=== PATIENT | female | born 1960 | race Caucasian/White ===

== ENCOUNTER → 2017-09-13 | Outpatient (CLI) | payer OTHER ==
[~2017-09-13] MED LIST: DUONEB 3 MG/3 ML3 M1 INH; GARLIC1000 M1 PO; GLYBURIDE5 MG PO; HYDRODIURIL25 MG PO; IRON325 M1 PO; METFORMIN500 MG PO; PREDNISONE20 M1 PO; PRINIVIL10 MG PO; VITAMIN B1250 MCG PO
== END | disposition home or self-care (01) ==
LOC: MAMMO 07:58
DX: Z12.31 Encounter for screening mammogram for malignant neoplasm of breast (principal); E55.9 Vitamin D deficiency, unspecified; E11.9 Type 2 diabetes mellitus without complications; D50.8 Other iron deficiency anemias; Z91.09 Other allergy status, other than to drugs and biological substances; I10 Essential (primary) hypertension

== ENCOUNTER 2018-01-28 20:34 | Emergency (ER) | payer OTHER ==
[~2018-01-28] VITALS: Ht 167.6 cm; Wt 134.3 kg
--- NOTE | ~2018-01-28 | EKG ---
[place], [place] ELECTROCARDIOGRAM REPORT NAME: DAVY SERRATO UNIT #: [id number] ROOM: DOCTOR: EPIPHANY DRAFT REPORT BIRTHDATE: [birth year] [facility] Test Date: 2018-01-28 Test Time: 21:16:04 Pat Name: DAVY SERRATO Department: ER Room: 8 Gender: F Insurance Sales Supervisor: DAYO : 1960 Requested By: SADIE NI Order Number: [id number] Reading MD: Amandeep Falcon MD Measurements Intervals [place] Rate: 68 P: 36 NE: 180 QRS: -30 QRSD: 111 T: 18 QT: 526 QTc: 560 Interpretive Statements Sinus rhythm Left axis deviation Borderline T abnormalities, anterior leads Prolonged QT interval Electronically Signed On 01-29-2018 9:42:51 PDT by Amandeep Falcon MD CM:EKGRPT:ELECTROCARDIOGRAM REPORT [id number] SADIE NI MD EPIPHANY DRAFT REPORT SADIE NI MD
[2018-01-28] MEDS ORDERED: MULTI COMPLETE1 EACH PO (20:48)
[2018-01-28 21:17] LABS: BASO % 0.5 % (0.0-1.0); EOS # 0.1 10*3/uL (0.0-0.4); EOS % 1.7 % (1.0-4.0); HEMATOCRIT 38.8 % (37.0-47.0); HEMOGLOBIN 12.5 g/dl (12.0-16.0); LYMPH # 1.6 10*3/uL (1.3-4.4); MEAN CELL VOLUME 84.2 fl (81.0-99.0); MEAN CORPUSCULAR HGB 27.1 pg (27.0-31.0); MEAN CORPUSCULAR HGB CONC 32.2 g/dl (33.0-37.0); MEAN PLATELET VOLUME 10.2 fl (9.6-12.3); MONO # 0.7 10*3/uL (0.1-1.0); MONO % 8.3 % (3.0-9.0); NEUT # 5.9 10*3/uL (2.3-7.9); NEUT % 70.3 % (47.0-73.0); PLATELET COUNT AUTOMATED 229 10*3/uL (130-400); RED BLOOD COUNT 4.61 10*6/uL (4.10-5.10); RED CELL DISTRI WIDTH 14.6 % (0-14.5); WHITE BLOOD COUNT 8.4 10*3/uL (4.8-10.8)
[2018-01-28 21:20] VITALS: BP 102/52
[2018-01-28 21:28] LABS: ACT PARTIAL THROMBO TIME 24.9 SECONDS (20.8-31.5); INTERNATIONAL NORM RATIO 0.9 (2.0-3.5)
[2018-01-28 21:33] LABS: ALBUMIN 3.6 gm/dl (3.1-4.5); ALKALINE PHOSPHATASE 76 U/L (45-117); BUN 16 mg/dl (7-24); CHLORIDE 104 mmol/L (98-107); CPK 54 U/L (26-192); CREATININE 0.71 mg/dL (0.55-1.02); POTASSIUM 3.9 mmol/L (3.5-5.1); SGOT/AST 11 IU/L (3-35); SGPT/ALT 20 U/L (12-78); SODIUM 138 mmol/L (136-145); TOTAL PROTEIN 7.1 gm/dL (6.4-8.2)
[2018-01-28 21:34] LABS: CKMB 0.7 ng/ml (0.5-3.6); TROPONIN I < 0.015 ng/ml (<0.045)
[2018-01-28] MEDS ORDERED: GOOD NEIGHBOR M25 M1 PO (22:36)
== END 2018-01-28 22:42 | disposition home or self-care (01) ==
LOC: ED 20:34
PROVIDERS: Emergency Medicine
DX: R42 Dizziness and giddiness (principal); Z79.899 Other long term (current) drug therapy

== ENCOUNTER → 2020-03-30 | Outpatient (CLI) | payer OTHER ==
[~2020-03-30] MED LIST changes: +GOOD NEIGHBOR M25 M1 PO; +MULTI COMPLETE1 EACH PO
== END | disposition home or self-care (01) ==
LOC: RAD 08:46
PROVIDERS: ATTEND Physician Assistant
DX: M47.816 Spondylosis without myelopathy or radiculopathy, lumbar region (principal); M16.12 Unilateral primary osteoarthritis, left hip; M85.88 Other specified disorders of bone density and structure, other site

== ENCOUNTER → 2020-07-19 | Outpatient (CLI) | payer OTHER | END | disposition home or self-care (01) | LOC: MRI 07:57 | PROVIDERS: ATTEND Physician Assistant | DX: M47.816 Spondylosis without myelopathy or radiculopathy, lumbar region (principal); M48.062 Spinal stenosis, lumbar region with neurogenic claudication; M51.26 Other intervertebral disc displacement, lumbar region; M54.41 Lumbago with sciatica, right side; M89.38 Hypertrophy of bone, other site ==

== ENCOUNTER → 2021-02-14 | Outpatient (CLI) | payer OTHER | END | disposition home or self-care (01) | LOC: MAMMO 00:28 | PROVIDERS: ATTEND Physician Assistant | DX: Z12.31 Encounter for screening mammogram for malignant neoplasm of breast (principal) ==

== ENCOUNTER → 2023-05-31 | Outpatient (CLI) | payer OTHER ==
[2023-05-31 12:29] LABS: HEMATOCRIT 36.7 % (37.0-47.0); MEAN CORPUSCULAR HGB 29.5 pg (27.0-31.0); MEAN CORPUSCULAR HGB CONC 33.5 g/dl (33.0-37.0); MEAN PLATELET VOLUME 10.2 fl (9.6-12.3); RED BLOOD COUNT 4.17 10*6/uL (4.10-5.10); RED CELL DISTRI WIDTH 13.8 % (0-14.5); WHITE BLOOD COUNT 6.6 10*3/uL (4.8-10.8)
[2023-05-31 13:03] LABS: ALKALINE PHOSPHATASE 68 U/L (46-116); BUN 15 mg/dl (9-23); CHLORIDE 105 mmol/L (98-107); CHOLESTEROL 118 mg/dL (<200); LDL CHOLESTEROL 49 mg/dL (9-159); POTASSIUM 4.5 mmol/L (3.4-5.1); SGPT/ALT 17 U/L (5-49); TOTAL PROTEIN 6.5 gm/dL (6.0-8.0); TRIGLYCERIDES 130 mg/dl (<150); VITAMIN D, 25-HYDROXY 59.9 ng/mL (30-100)
== END | disposition home or self-care (01) ==
LOC: LAB 12:10
PROVIDERS: ATTEND Physician Assistant
DX: E11.9 Type 2 diabetes mellitus without complications (principal); E55.9 Vitamin D deficiency, unspecified; M54.41 Lumbago with sciatica, right side

== ENCOUNTER 2023-11-03 22:33 | Emergency (ER) | payer OTHER ==
[~2023-11-03] VITALS: Ht 167.6 cm; Wt 137.0 kg
[2023-11-03 22:42] VITALS: BP 117/48
[2023-11-03] MEDS ORDERED: TRULICITY0.75 MG/0. SC (22:43)
[2023-11-03] MEDS ORDERED: Tdap Vaccine 0.5 ML SYR (Adult Vaccine) IM ONE (22:50)
[2023-11-03] MEDS ORDERED: Lidocaine Hydrochloride 2% 10 ML AMP SC ONE (22:50)
[2023-11-03] MEDS ORDERED: Bacitracin Zinc 14 GM TUBE T ONE (22:50)
[2023-11-03] MEDS ORDERED: Lidocaine Hydrochloride 100 MG/5 ML SYR IV ONE (23:02)
[2023-11-03] MEDS ORDERED: Lidocaine Hydrochloride 2 ML IV ONE (23:04)
[2023-11-03] MEDS ORDERED: Lidocaine Hydrochloride 5 ML AMP ONE (23:06)
[2023-11-03] MEDS ORDERED: CEPHALEXIN500 M1 PO (23:22)
== END 2023-11-03 23:48 | disposition home or self-care (01) ==
LOC: ED 22:33
DX: S61.411A Laceration without foreign body of right hand, initial encounter (principal); Z98.890 Other specified postprocedural states; W25.XXXA Contact with sharp glass, initial encounter; Y93.G1 Activity, food preparation and clean up; Y92.009 Unspecified place in unspecified non-institutional (private) residence as the place of occurrence of the external cause; Y99.8 Other external cause status

== ENCOUNTER 2023-12-16 00:39 | Emergency (ER) | payer OTHER ==
[~2023-12-16] VITALS: Ht 167.6 cm; Wt 144.2 kg
[~2023-12-16 00:39] MED LIST changes: +CEPHALEXIN500 M1 PO; +TRULICITY0.75 MG/0. SC
[2023-12-16] MEDS ORDERED: SODIUM CHLORIDE 0.9% 1,000 ML IV ONE (00:55)
[2023-12-16] MEDS ORDERED: VOLTAREN50 M1 PO (01:12)
[2023-12-16] MEDS ORDERED: CLARITIN10 MG PO (01:12)
[2023-12-16] MEDS ORDERED: MAGNESIUM400 M1 PO (01:13)
[2023-12-16] MEDS ORDERED: VITAMIN D3125 MC1 PO (01:14)
[2023-12-16 01:16] LABS: BASO # 0.1 10*3/uL (0.0-0.1); BASO % 0.6 % (0.0-1.0); EOS # 0.4 10*3/uL (0.0-0.4); EOS % 4.6 % (1.0-4.0); HEMATOCRIT 37.2 % (37.0-47.0); LYMPH # 2.1 10*3/uL (1.3-4.4); LYMPH % 25.6 % (27.0-41.0); MEAN CELL VOLUME 89.4 fl (81.0-99.0); MEAN CORPUSCULAR HGB 29.1 pg (27.0-31.0); MEAN CORPUSCULAR HGB CONC 32.5 g/dl (33.0-37.0); MEAN PLATELET VOLUME 10.5 fl (9.6-12.3); MONO # 0.7 10*3/uL (0.1-1.0); MONO % 8.1 % (3.0-9.0); NEUT % 60.6 % (47.0-73.0); PLATELET COUNT AUTOMATED 239 10*3/uL (130-400); RED BLOOD COUNT 4.16 10*6/uL (4.10-5.10); RED CELL DISTRI WIDTH 14.4 % (0-14.5); WHITE BLOOD COUNT 8.3 10*3/uL (4.8-10.8)
[2023-12-16 01:27] LABS: ACT PARTIAL THROMBO TIME 27.2 SECONDS (20.0-32.1)
[2023-12-16] MEDS ORDERED: Metoprolol Tartrate 5 MG/5 ML VIAL IV ONE (01:30)
[2023-12-16 01:37] LABS: POTASSIUM 4.8 mmol/L (3.4-5.1); TOTAL PROTEIN 6.2 gm/dL (6.0-8.0)
[2023-12-16 02:13] VITALS: BP 92/57
== END 2023-12-16 04:15 | disposition home or self-care (01) ==
LOC: ED 00:39
PROVIDERS: Internal Medicine
DX: I47.19 Other supraventricular tachycardia (principal); E11.9 Type 2 diabetes mellitus without complications; R51.9 Headache, unspecified; Z88.1 Allergy status to other antibiotic agents; Z88.8 Allergy status to other drugs, medicaments and biological substances; Z98.890 Other specified postprocedural states

== ENCOUNTER 2024-06-08 20:54 | Emergency (ER) | payer OTHER ==
[~2024-06-08] VITALS: Wt 143.8 kg
[~2024-06-08 20:54] MED LIST changes: +CLARITIN10 MG PO; +MAGNESIUM400 M1 PO; +VITAMIN D3125 MC1 PO; +VOLTAREN50 M1 PO
[2024-06-08 21:08] VITALS: BP 126/53
[2024-06-08] MEDS ORDERED: SEPTDS PO (21:20)
[2024-06-08] MEDS ORDERED: CEPHALEXIN500 M1 PO (21:20)
[2024-06-08] MEDS ORDERED: CEPHALEXIN 500 MG CAP PO ONE (21:25)
[2024-06-08] MEDS ORDERED: Acetaminophen/Oxycodone 5 MG/325 MG TABLET PO ONE (21:25)
[2024-06-08] MEDS ORDERED: Sulfamethoxazole/Trimethopri 1 TAB TAB PO ONE (21:25)
== END 2024-06-08 21:43 | disposition home or self-care (01) ==
LOC: ED 20:54
DX: L03.011 Cellulitis of right finger (principal); Z88.1 Allergy status to other antibiotic agents; Z79.899 Other long term (current) drug therapy; Z79.84 Long term (current) use of oral hypoglycemic drugs; Z98.890 Other specified postprocedural states

== ENCOUNTER → 2024-06-23 | Outpatient (CLI) | payer OTHER ==
[~2024-06-23] MED LIST changes: +SEPTDS PO
== END | disposition home or self-care (01) ==
LOC: WOUNDCARE 08:23
PROVIDERS: ATTEND Nurse Practitioner Family
DX: L02.511 Cutaneous abscess of right hand (principal); L02.91 Cutaneous abscess, unspecified; E11.9 Type 2 diabetes mellitus without complications; Z90.89 Acquired absence of other organs; Z79.84 Long term (current) use of oral hypoglycemic drugs; Z79.899 Other long term (current) drug therapy

== ENCOUNTER → 2024-07-02 | Outpatient (CLI) | payer OTHER | END | disposition home or self-care (01) | LOC: ORTHO 02:21 | PROVIDERS: ATTEND Orthopaedic Surgery | DX: M19.041 Primary osteoarthritis, right hand (principal); L03.011 Cellulitis of right finger ==

== ENCOUNTER → 2024-07-21 | Outpatient (CLI) | payer OTHER | END | disposition home or self-care (01) | LOC: ORTHO 08:49 | PROVIDERS: ATTEND Orthopaedic Surgery | DX: M19.041 Primary osteoarthritis, right hand (principal); M79.644 Pain in right finger(s) ==